=== PATIENT | female | born 1985 | race African-American/Black ===

== ENCOUNTER 2021-12-01 20:33 | Emergency (ER) | payer OTHER ==
[~2021-12-01] VITALS: Ht 180.3 cm; Wt 181.4 kg
[2021-12-01 21:56] LABS: HEMATOCRIT 37.2 % (37.0-47.0); HEMOGLOBIN 11.8 gm/dL (12.0-15.0); MCHC 31.8 g/dL (28.0-37.0); MCV 81.7 fL (80.0-100.0); RBC 4.56 mil/uL (4.20-5.00); RDW 17.5 % (10.5-14.5); WBC 8.2 thou/uL (4.0-11.0)
[2021-12-01 22:07] LABS: CALCIUM 8.7 mg/dL (8.5-10.1); CREATININE 0.8 mg/dL (0.6-1.0); POTASSIUM 3.7 mmol/L (3.5-5.1)
[2021-12-01 22:19] LABS: ALBUMIN 2.8 g/dL (3.4-5.0); TOTAL BILIRUBIN 0.9 mg/dL (0.2-1.0); TOTAL PROTEIN 6.2 g/dL (6.4-8.2)
[2021-12-02] MEDS ORDERED: PROAIR HFA8.5 GM INH (01:00)
[2021-12-02 01:08] VITALS: BP 135/69
--- NOTE | 2021-12-02 08:44 | EKG ---
[place] [address] [facility] [place] [address] ELECTROCARDIOGRAM REPORT Name: ARCHANA OCAMPO Room #: [facility] [id number] Admission: 12/01/21 Attend Phys: Discharge: 12/02/21 Date of : 83 Report #: [id number] [facility] ED Test Date: 2021-12-01 Test Time: 21:50:19 Pat Name: ARCHANA OCAMPO Department: Room: Gender: F [employer] Super[employer]: : 1985 Requested By: Simi Vargas Order Number: [id number] MD: Gene Mcgee Measurements Intervals [place] Rate: 76 P: 12 NM: 188 QRS: -38 QRSD: 93 T: 26 QT: 392 QTc: 441 Interpretive Statements Sinus rhythm Left axis deviation Low voltage, precordial leads No previous ECG available for comparison Electronically Signed On 12-02-2021 8:44:36 PROTOHISTORIAN by Gene Mcgee [email or web address] <ELECTRONICALLY SIGNED> By: Gene Mcgee MD, [facility] 12/02/21 0844 2150 2150 Gene Mcgee MD, FACC /EPI
== END 2021-12-02 01:10 | disposition home or self-care (01) ==
LOC: ER 20:33
PROVIDERS: Student in an Organized Health Care Education/Training Program
DX: R06.02 Shortness of breath (principal); Z98.51 Tubal ligation status; Z90.89 Acquired absence of other organs; Z88.0 Allergy status to penicillin